=== PATIENT | male | born 1945 | race Caucasian/White ===

== ENCOUNTER → 2016-11-04 | Outpatient (CLI) | payer MEDICARE, BC ==
[~2016-11-04] MED LIST: ASPIRIN E.C. 8181 MG PO; CINNAMON500 MG PO; DIABETA 5MG5 MG/TAB PO; FLONASE NASAL S16 GM NS; GLUCOPHAGE1000 MG PO; METROCREAM CREA45 GM TP; PRIL40 PO; PRINIVIL40 MG PO; PROVENTIL0.09 MG/A1 IH
== END ==
LOC: COL.RAD 13:15
DX: R82.99 Other abnormal findings in urine (principal); N28.1 Cyst of kidney, acquired

== ENCOUNTER 2020-01-21 10:16 | Day surgery (SDC) | payer MEDICARE, BC ==
[2020-01-21] VITALS (7 sets, daily range): BP systolic 112–145; BP diastolic 48–76; PULSE 59–69; TEMP 98.2–98.7
[~2020-01-21] VITALS: Ht 182.9 cm; Wt 129.4 kg
[~2020-01-21 10:16] MED LIST changes: +ALDACTONE 25MG25 M1 PO; +B-12 250 MCG PO; +COREG 6.256.25 MG/TA PO; +GLUCOPHAGE850 MG/TAB PO; +K-TAB10 PO; +LASIX 20MG TABL20 MG PO; +LEVEMIR100 U/ML SQ; +MAG-OX 400400 MG/TAB PO; +NORVASC 10MG10 MG PO; +PEPCID 20MG TAB20 MG PO; +TOPROL XL 25MG25 MG PO; +TYLENOL 500MG500 MG PO; +VITAMIN D31000 I1 PO
[2020-01-21 10:58] LABS: HEMATOCRIT 43.7 % (42.0-52.0); HEMOGLOBIN 14.4 g/dl (13.5-18.0); MEAN CELL VOLUME 91 fl (80.0-100.0); MEAN CORPUSCULAR HEMOGLOBIN 30 pg (27.0-31.0); MEAN CORPUSCULAR HGB CONC 33 g/dl (33.0-37.0); PLATELET COUNT 259 K/mm3 (130-400); RED BLOOD COUNT 4.81 M/mm3 (4.20-5.60)
[2020-01-21 11:00] LABS: CALCIUM 9.3 mg/dL (8.4-10.2); CREATININE, serum 0.95 (0.66-1.25); POTASSIUM 4.3 mmol/L (3.4-5.0)
[2020-01-21 11:01] LABS: PROTHROMBIN TIME 11.3 SECONDS (9.7-12.8)
[2020-01-21] MEDS ORDERED: PROTONIX20 MG PO (11:50)
[2020-01-21] MEDS ORDERED: TRESIBA FL200 UNIT/1 SQ (11:50)
[2020-01-21] MEDS ORDERED: ADVIL200 MG PO (11:54)
[2020-01-21] MEDS ORDERED: ASPIRIN 32325 MG/TAB PO (11:55)
--- NOTE | 2020-01-21 12:30 | NUR ---
Pt to procedure.
--- NOTE | 2020-01-21 12:49 | NUR ---
SEE MERGE DOCUMENTATION FOR MEDICATION ADMINISTRATION TIMES AND INTRA/POST PROCEDURE SEDATION ASSESSMENTS.
--- NOTE | 2020-01-21 15:00 | NUR ---
Pt arrives to medical unit rm [id number] from laboratory assistant via bed, awake, slightly drowsy reports pain to left chest incisions 5-6 out of 10, denies medication at this time. Ice pack in place over left chest incision. IV to left AC without s/s of complications. VSS. Water provided and bedrest reviewed with pt. No further needs reported. Call light in reach.
--- NOTE | 2020-01-21 17:07 | NUR ---
Shift assessment completed. A/O x4. Skin warm and dry. Incision over left chest, clean dry intact. Lung sounds clear all suresh. S1S2 heard, rhythm regular. Bowel sounds audible all quadrants. Capillary refill <3 seconds. Bilateral radial and dorsalis pedis pulses +2. No edema noted. IV to Left wrist intact and flushes easily. Left arm in sling. Reporting pain 6/10, PO tylenol given per orders. Will continue to monitor. Call light within reach.
[2020-01-21] MEDS ORDERED: PRINIVIL40 MG PO (17:25)
[2020-01-22 01:05] VITALS: BP 121/60; PULSE 66; TEMP 98.4
--- NOTE | 2020-01-22 02:56 | NUR ---
Patient has been resting in bed this shift. Patient is utilizing 1000mg of Tylenol for pain relief. Patient has IV in left AC. Antibiotics given as ordered. Pacemaker site is clean dry and intact. The site where the loop recorder was removed has a pea sized amount of shadowing that was there at shift change. Patient to have chest xray and EKG in the moring.
[2020-01-22 05:12] VITALS: BP 116/49; PULSE 63; TEMP 98.5
[2020-01-22 07:02] LABS: BASO % 0.6 % (0.0-2.0); EOS # 0.2 (0.0-0.7); EOS % 2.4 % (0-4.0); GRAN # 4.5 (1.4-6.5); GRAN % 62.1 % (42.2-75.2); HEMATOCRIT 41.2 % (42.0-52.0); HEMOGLOBIN 13.6 g/dl (13.5-18.0); LYMPH # 1.7 (1.2-3.4); LYMPH % 24.3 % (20.0-51.0); MEAN CELL VOLUME 92 fl (80.0-100.0); MEAN CORPUSCULAR HEMOGLOBIN 30 pg (27.0-31.0); MEAN CORPUSCULAR HGB CONC 33 g/dl (33.0-37.0); MEAN PLATELET VOLUME 9.2 fl (7.4-10.4); MONO # 0.7 (0.1-0.6); MONO % 10.2 % (1.7-9.3); PLATELET COUNT 229 K/mm3 (130-400); REDCELL DISTRIBUTION WIDTH-CV 13.2 % (11.5-14.5)
[2020-01-22 07:11] LABS: ALBUMIN 3.6 gm/dL (3.5-5.0); BILIRUBIN,TOTAL 0.6 mg/dL (0.0-1.0); CALCIUM 8.8 mg/dL (8.4-10.2); CREATININE, serum 0.98 (0.66-1.25); POTASSIUM 4.1 mmol/L (3.4-5.0); TOTAL PROTEIN 6.8 gm/dL (6.4-8.2)
[2020-01-22 07:41] VITALS: BP 142/72; PULSE 63; TEMP 98
[2020-01-22] MEDS ORDERED: COREG 6.256.25 MG/TA PO (09:22)
[2020-01-22] MEDS ORDERED: NORCO 325 MG-51 TAB PO (09:23)
[2020-01-22] MEDS ORDERED: CEPHALEXIN500 M1 PO (09:24)
--- NOTE | 2020-01-22 09:42 | NUR ---
PATIENT IS SITTING UP IN BED WATCHING TV. DOES STATE THAT HIS INCISION SITES ARE SORE BUT DECLINES PAIN MEIDCATION AT THIS TIME. DRESSINGS ARE DRY AND INTACT. ICD REMOVAL SITE DRESSING IS WITHOUT DRAINAGE. PACEMAKER SITE DOES HAVE A PEA SIZED RED DRAINAGE AREA WHICH IS UNCHANGED REPORTED FROM TECHNOLOGY COORDINATOR NURSE WHO ASSESSED DRESSING WITH ME. CALL LIGHT AND PERSONAL ITEMS ARE WITHIN REACH.
--- NOTE | 2020-01-22 11:41 | NUR ---
First visit from the shop service technician. No needs right now.
--- NOTE | 2020-01-22 12:57 | NUR ---
PATIENT DISCHARGED HOME AT 1215. PERSONAL BELONGINGS WERE SENT WITH PATIENT. HE AMBULATED TO PRIVATE VEHICLE ACCOMPANIED BY STAFF.
== END 2020-01-22 12:15 | disposition home or self-care (01) ==
LOC: COL.CAR 10:16 → MEDICAL 14:55 → COL.CAR 01-22 12:15
PROVIDERS: Internal Medicine Cardiovascular Disease
DX: I49.5 Sick sinus syndrome (principal); G47.33 Obstructive sleep apnea (adult) (pediatric); R55 Syncope and collapse; I10 Essential (primary) hypertension; E66.9 Obesity, unspecified; E11.9 Type 2 diabetes mellitus without complications; I34.1 Nonrheumatic mitral (valve) prolapse; K21.0 Gastro-esophageal reflux disease with esophagitis; E11.22 Type 2 diabetes mellitus with diabetic chronic kidney disease; E11.65 Type 2 diabetes mellitus with hyperglycemia; Z20.828 Contact with and (suspected) exposure to other viral communicable diseases; Z95.0 Presence of cardiac pacemaker; Z88.2 Allergy status to sulfonamides; Z88.5 Allergy status to narcotic agent; Z79.4 Long term (current) use of insulin; Z79.82 Long term (current) use of aspirin; Z80.0 Family history of malignant neoplasm of digestive organs; Z87.891 Personal history of nicotine dependence
CPT/HCPCS: OP; J0690; J1815; J2250; J3010; J7030

== ENCOUNTER 2020-01-31 06:38 | Day surgery (SDC) | payer MEDICARE, BC ==
[~2020-01-31] VITALS: Ht 182.9 cm; Wt 132.5 kg
[2020-01-31] VITALS (10 sets, daily range): BP systolic 116–155; BP diastolic 49–67; PULSE 54–66; TEMP 97.6–98.4
[~2020-01-31 06:38] MED LIST changes: +ADVIL200 MG PO; +ASPIRIN 32325 MG/TAB PO; +CEPHALEXIN500 M1 PO; +NORCO 325 MG-51 TAB PO; +PROTONIX20 MG PO; +TRESIBA FL200 UNIT/1 SQ
[2020-01-31] MEDS ORDERED: ALDACTONE 25MG25 M1 PO (06:54)
[2020-01-31] MEDS ORDERED: COREG 6.256.25 MG/TA PO (06:56)
[2020-01-31 07:16] LABS: HEMATOCRIT 40.4 % (42.0-52.0); HEMOGLOBIN 13.3 g/dl (13.5-18.0); MEAN CELL VOLUME 91 fl (80.0-100.0); MEAN CORPUSCULAR HEMOGLOBIN 30 pg (27.0-31.0); MEAN CORPUSCULAR HGB CONC 33 g/dl (33.0-37.0); MEAN PLATELET VOLUME 8.8 fl (7.4-10.4); PLATELET COUNT 232 K/mm3 (130-400); RED BLOOD COUNT 4.43 M/mm3 (4.20-5.60)
[2020-01-31 07:21] LABS: PROTHROMBIN TIME 10.8 SECONDS (9.7-12.8)
[2020-01-31 07:26] LABS: CREATININE, serum 0.89 (0.66-1.25); POTASSIUM 4.2 mmol/L (3.4-5.0)
--- NOTE | 2020-01-31 10:40 | NUR ---
Patient arrived to the floor at this time. He is atable, awake and alert at this time. Vitals are being monitored per protocal. Patient was experiencing some pain, an ice pack and PRN tylenol were provided for this. Ice water was provided per request. Belongings have been stored in room cabinets for patient. Urinal provided per request as well as he did not want to get up right away, this was provided to him. Patient stated he planned to sleep off his medication and drowsiness. No further needs were expressed at this time. CAll light is in reach.
--- NOTE | 2020-01-31 11:44 | NUR ---
SEE MERGE DOCUMENTATION FOR MEDICATION ADMINISTRATION TIMES AND INTRA/POST PROCEDURE SEDATION ASSESSMENTS. RIGHT HAND BARBEAU TEST POSITIVE.
--- NOTE | 2020-01-31 15:49 | NUR ---
Patient has been stable and comfortable since arriving to the floor. He has been experiencing pain at the incision site. Ice pack and PRN pain medication were given for this. Patient has had no other needs at this time. Call light is in reach.
--- NOTE | 2020-01-31 23:40 | NUR ---
Pt assessment completed and charted, alert, oriented, roomair. Meds provided as per MAR, tolerated well. No N/V/D, numbness, tingling, pain, SOA as per pt. I/V line flushed without complications. Pt has sling on his left arm. Helped settled on bed, call light on reach. No further needs at this time.
[2020-02-01 04:00] VITALS: BP 148/64; PULSE 61; TEMP 97.6
--- NOTE | 2020-02-01 07:23 | NUR ---
Pt had an uneventful night, slept through out the night. Morning meds provided as per SEP. Handover provided to LUIS FELIPE Duval.
[2020-02-01 08:00] VITALS: BP 144/68; PULSE 60; TEMP 97.9
[2020-02-01 08:29] LABS: BASO # 0.1 (0.0-0.2); BASO % 0.9 % (0.0-2.0); EOS # 0.2 (0.0-0.7); EOS % 2.5 % (0-4.0); GRAN # 4.4 (1.4-6.5); GRAN % 64.8 % (42.2-75.2); HEMATOCRIT 40.9 % (42.0-52.0); HEMOGLOBIN 13.5 g/dl (13.5-18.0); LYMPH # 1.5 (1.2-3.4); LYMPH % 22.4 % (20.0-51.0); MEAN CELL VOLUME 92 fl (80.0-100.0); MEAN CORPUSCULAR HEMOGLOBIN 30 pg (27.0-31.0); MEAN CORPUSCULAR HGB CONC 33 g/dl (33.0-37.0); MONO # 0.6 (0.1-0.6); MONO % 9.1 % (1.7-9.3); PLATELET COUNT 242 K/mm3 (130-400); RED BLOOD COUNT 4.45 M/mm3 (4.20-5.60); REDCELL DISTRIBUTION WIDTH-CV 13.2 % (11.5-14.5)
--- NOTE | 2020-02-01 08:40 | NUR ---
PT AOX4. STATES MILD PAIN TO LEFT HCEST INCISION SITE RELIEVED WITH TYLENOL. DENIES CP, FLORES, N/V, FLORES. ARM SLING ON. VSS.
[2020-02-01 08:44] LABS: ALBUMIN 3.7 gm/dL (3.5-5.0); BILIRUBIN,TOTAL 0.6 mg/dL (0.0-1.0); CALCIUM 8.7 mg/dL (8.4-10.2); CREATININE, serum 0.79 (0.66-1.25); TOTAL PROTEIN 6.9 gm/dL (6.4-8.2)
[2020-02-01] MEDS ORDERED: NORVASC 10MG10 MG PO (10:14)
[2020-02-01] MEDS ORDERED: COREG 6.256.25 MG/TA PO (10:14)
[2020-02-01] MEDS ORDERED: ALDACTONE 25MG25 M1 PO (10:15)
[2020-02-01] MEDS ORDERED: CEPHALEXIN500 M1 PO (10:20)
--- NOTE | 2020-02-01 12:58 | NUR ---
Plan: Plan to return home with spouse ([phone] in [place]. Assessment: SW met with patient in the room. Patient reports that his PCP is Dr. Mas. Obtains RX from [facility], Pacemaker, and cpap but does not use at this time. Patient rports that he is still able to drive himself but will slate picker. Denies home health. Patient denies having any care concerns. Action: Educated on community resources and services for him and family. No addtional issues identified.
== END 2020-02-01 11:50 | disposition home or self-care (01) ==
LOC: COL.CAR 06:38 → MEDICAL 10:36 → COL.CAR 02-01 11:50
PROVIDERS: Internal Medicine Cardiovascular Disease
DX: T82.120A Displacement of cardiac electrode, initial encounter (principal); I49.5 Sick sinus syndrome; I45.5 Other specified heart block; I08.3 Combined rheumatic disorders of mitral, aortic and tricuspid valves; E11.40 Type 2 diabetes mellitus with diabetic neuropathy, unspecified; I10 Essential (primary) hypertension; G47.33 Obstructive sleep apnea (adult) (pediatric); G47.10 Hypersomnia, unspecified; G20 Parkinson's disease; K21.0 Gastro-esophageal reflux disease with esophagitis; E66.9 Obesity, unspecified; R60.0 Localized edema; Z68.41 Body mass index [BMI] 40.0-44.9, adult; Z79.4 Long term (current) use of insulin; Z79.899 Other long term (current) drug therapy; Z79.82 Long term (current) use of aspirin; Z88.5 Allergy status to narcotic agent; Z88.2 Allergy status to sulfonamides; Z80.0 Family history of malignant neoplasm of digestive organs; Z87.891 Personal history of nicotine dependence
CPT/HCPCS: OP; J0690; J1815; J2250; J3010; J7030

== ENCOUNTER → 2020-10-02 | Outpatient (CLI) | payer MEDICARE, BC | LOC: COL.RAD 08:30 | DX: I25.10 Atherosclerotic heart disease of native coronary artery without angina pectoris (principal); N28.1 Cyst of kidney, acquired; Z82.49 Family history of ischemic heart disease and other diseases of the circulatory system; Z95.810 Presence of automatic (implantable) cardiac defibrillator | CPT/HCPCS: Q9967 ==

== ENCOUNTER 2022-04-07 08:09 | Day surgery (SDC) | payer MEDICARE, BC ==
[~2022-04-07] VITALS: Ht 182.9 cm; Wt 130.2 kg
[2022-04-07] VITALS (8 sets, daily range): BP systolic 119–219; BP diastolic 66–77; PULSE 60–74; TEMP 97.1
[~2022-04-07 08:09] MED LIST changes: -ASPIRIN 32325 MG/TAB PO
[2022-04-07 08:51] LABS: HEMATOCRIT 40.5 % (42.0-52.0); HEMOGLOBIN 13.6 g/dl (13.5-18.0); MEAN CELL VOLUME 91 fl (80.0-100.0); MEAN CORPUSCULAR HEMOGLOBIN 31 pg (27-31); MEAN CORPUSCULAR HGB CONC 34 g/dl (33.0-37.0); PLATELET COUNT 225 K/mm3 (130-400); RED BLOOD COUNT 4.43 M/mm3 (4.20-5.60); REDCELL DISTRIBUTION WIDTH-CV 12.7 % (11.5-14.5)
[2022-04-07 08:59] LABS: INR 1.2 (0.8-3.0); PROTHROMBIN TIME 13.2 SECONDS (9.7-12.8)
[2022-04-07 09:02] LABS: PARTIAL THROMBOPLASTIN TIME 34.1 SECONDS (26.0-37.0)
[2022-04-07 09:11] LABS: CALCIUM 8.7 mg/dL (8.4-10.2); CREATININE, serum 1.03 mg/dL (0.72-1.25)
[2022-04-07] MEDS ORDERED: COREG 25MG25 MG/TAB PO (09:43)
[2022-04-07] MEDS ORDERED: LIPITOR 80MG80 MG PO (09:47)
[2022-04-07] MEDS ORDERED: ZANAFLEX CAPSULE2 MG PO (09:47)
[2022-04-07] MEDS ORDERED: OZEMPIC2 MG/0.75 SQ (09:48)
[2022-04-07] MEDS ORDERED: ELIQUIS 5MG PO (09:49)
[2022-04-07] MEDS ORDERED: BUMEX2 MG PO (09:49)
--- NOTE | 2022-04-07 10:56 | NUR ---
Pt back to express after negative heart cath. Pt is relaxed, alert, pwd, resp reg and unlabored. TR band to rt wrist. cms intact distal. a paced on monitor, tele employed, lunch ordered, call light in reach. at bs.
--- NOTE | 2022-04-07 14:20 | NUR ---
Pt has done well during his recovery. TR band deflated with no problem. CMS remains intact. site dressed with bandaid, folded 2x2 and coban. I have reviewed dc/rx and fu instructions with pt and , both of whom verbalized understanding. PT is up and steady on his feet. To exit via wheelchair.
== END 2022-04-07 18:07 | disposition home or self-care (01) ==
LOC: COL.CAR 08:09
PROVIDERS: Internal Medicine Cardiovascular Disease
DX: I25.41 Coronary artery aneurysm (principal); E11.9 Type 2 diabetes mellitus without complications; G47.33 Obstructive sleep apnea (adult) (pediatric); E66.01 Morbid (severe) obesity due to excess calories; I49.5 Sick sinus syndrome; I11.0 Hypertensive heart disease with heart failure; I50.33 Acute on chronic diastolic (congestive) heart failure; I48.0 Paroxysmal atrial fibrillation; R60.0 Localized edema; Z79.4 Long term (current) use of insulin; Z68.41 Body mass index [BMI] 40.0-44.9, adult; Z95.0 Presence of cardiac pacemaker
CPT/HCPCS: J1644; J2250; J3010; Q9967